=== PATIENT | male | born 1995 | race American Indian/Alaskan Native ===

== ENCOUNTER 2019-08-11 13:30 | Emergency (ER) | payer SELFPAY ==
[2019-08-11 15:36] VITALS: BP 129/67
--- NOTE | 2019-08-11 15:41 | Emergency Department Report ---
Chief Complaint: Extremity Injury, Upper Stated Complaint: RIGHT HAND PAIN Time Seen by Provider: 08/11/19 15:35 - HPI History of Present Illness: 24 y/o male comes in for 3 day history of left theanar pain. 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 Ibuprofen works for his pain. - Exam Physical Exam: axo times 3 NAD hand right FROM no swelling no tenderness no redness. MSE screening note: Focused history and physical exam performed. Due to findings the following was ordered: ED Disposition for MSE Disposition: Z MED SCREENING EXAM-LEFT Is pt being admited?: No Does the pt Need Aspirin: No Condition: Stable Additional Instructions: Recommend Ibuprofen. Forms: Work/School Release Form(ED)
== END 2019-08-11 17:01 | disposition left against medical advice (07) ==
LOC: ED 13:30
DX: M79.601 Pain in right arm (principal); Z53.21 Procedure and treatment not carried out due to patient leaving prior to being seen by health care provider

== ENCOUNTER 2019-09-19 10:34 | Emergency (ER) | payer SELFPAY ==
[2019-09-19 12:01] VITALS: BP 119/70
--- NOTE | 2019-09-19 12:02 | Event Note ---
ED Screening Note Date of service: 09/19/19 Time: 12:01 ED Screening Note: presents with cold symptoms and carpul tunel This initial assessment/diagnostic orders/clinical plan/treatment(s) is/are subject to change based on patients health status, clinical progression and re- assessment by fellow clinical providers in the ED. Further treatment and workup at subsequent clinical providers discretion. Patient/guardian urged not to elope from the ED as their condition may be serious if not clinically assessed and managed. Initial orders include: explained to ptneed pcp for carpel xray acc
--- NOTE | 2019-09-19 12:37 | XRay Report ---
CHEST 2 VIEWS INDICATION / CLINICAL INFORMATION: cp with cough. COMPARISON: None available. FINDINGS: SUPPORT DEVICES: None. HEART / MEDIASTINUM: No significant abnormality. LUNGS / PLEURA: No significant pulmonary or pleural abnormality. .No pneumothorax. ADDITIONAL FINDINGS: No significant additional findings. IMPRESSION: 1. No acute findings. Signer Name: Nash Verdugo MD Signed: 09/19/2019 12:33 PM Workstation Name: [id number]
== END 2019-09-19 14:00 | disposition left against medical advice (07) ==
LOC: ED 10:34
DX: J00 Acute nasopharyngitis [common cold] (principal); Z53.21 Procedure and treatment not carried out due to patient leaving prior to being seen by health care provider
CPT/HCPCS: 71046